=== PATIENT | female | born 1935 | race Caucasian/White ===

== ENCOUNTER 2017-08-19 16:41 | Inpatient (IN) ==
--- NOTE | 2017-08-19 16:58 | Emergency Department Note ---
Disposition Clinical Impression: Hypoxia Left lower lobe pneumonia Qualifiers: Pneumonia type: due to unspecified organism Qualified Code(s): J18.1 - Lobar pneumonia, unspecified organism Disposition: Admitted As Inpatient Referrals: Jihan Levin MD [Primary Care Provider] - Time of Disposition: 18:22 General Adult HPI - General Stated complaint: sob, chest congestion, dizziness, earache Time Seen by Provider: 08/19/17 16:56 Source: patient, other Mode of arrival: ambulatory Limitations: no limitations Nursing Notes Reviewed: Yes Vital Signs Reviewed: Yes - History of Present Illness HPI Narrative: I received a call from physician medical assistant float at the urgent care who indicated this patient had a five-day history of shortness of breath, lightheadedness, cough productive of purulent sputum, he had taken a chest x-ray which showed a left lower lobar infiltrate but was concerned because her pulse was irregularly irregular, she had been short of breath and dizzy and lightheaded and he was concerned that she may need to be admitted for her pneumonia. She had refused EKG there and has no history of atrial fib so he wanted her seen here in the emergency department Social history lives alone. Has not been out of the house in 6 days. Difficulty moving between her room and her bathroom because of dyspnea on exertion. Also reports edema about baseline for her. Denies past medical history of nebulizer treatments, COPD, emphysema, CHF. Onset (ago): day(s) (6) Pain Scale: 0 Associated symptoms: Reports: cough, diaphoresis, fever/chills, loss of appetite , malaise, shortness of breath. Denies: nausea/vomiting, syncope Treatments Prior to Arrival: none - Related Data Home Medications Medication Instructions Recorded Confirmed Atorvastatin Calcium [Lipitor] 20 mg PO DAILY 07/24/15 08/19/17 Carvedilol 12.5 mg PO BID 07/24/15 08/19/17 HydrALAZINE 100 mg PO BID 07/24/15 08/19/17 Lisinopril [Zestril] 20 mg PO DAILY 07/24/15 08/19/17 Omeprazole [PriLOSEC] 20 mg PO DAILY 07/24/15 08/19/17 Acetaminophen [Tylenol] 500 mg PO Q6HR PRN 08/19/17 08/19/17 Aspirin 325 mg PO DAILY 08/19/17 08/19/17 Cholecalciferol (Vitamin D3) 2,000 units PO DAILY 08/19/17 08/19/17 [Vitamin D3] Allergies Allergy/AdvReac Type Severity Reaction Status Date / Time No Known Allergies Allergy Verified 07/24/15 12:21 All systems ED: reviewed and negative except as stated. Review of Systems: As Per HPI Cardiovascular: Reports: dyspnea on exertion. Denies: chest pain, palpitations Respiratory: Reports: cough, dyspnea Past Medical History - Past Medical History Medical history: Reports: no medical history Psychiatric history: Reports: no psych history - Social History Smoking Status: Never smoker Smokeless Tobacco Status: No Alcohol use: Reports: none Drug use: Reports: none Physical Exam Constitutional: Patient is oriented to person, place, and time. Skin color is pink. Appears well hydrated, body habitus elderly and frail . Non toxic appearing. Head: Normocephalic and atraumatic. External ear exam normal Nose: Nose normal. Mouth/Throat: Uvula is midline, oropharynx is clear and moist and mucous membranes are normal. Eyes: Conjunctivae nl, extraocular motions and lids are normal. Pupils are equal , round, and reactive to light. Neck: Normal range of motion and phonation normal. Neck supple. Cardiovascular: Normal rate, irregular]rhythm, normal heart sounds. Pulmonary/Chest: No Respiratory distress. Respiratory Effort normal and breath sounds diminished. Pleural rub right lateral lung field. No wheezing Abdominal: Soft. Normal appearance and bowel sounds are normal. no tenderness, no masses, no guarding, no rebound Musculoskeletal: Good distal pulses. Soft compartments. Brisk cap refill. Extremities: Normal range of motion.Intact peripheral pulses. 2+ Edema. Extremity skin color darkened as if from chronic venous insufficiency no calf tenderness or palpable cords. Neurological: Patient is alert and oriented without evidence of obvious focal motor deficits Skin: Skin is warm, dry and intact. color is normal, cap refill is quick Psychiatric: Patient has normal mood and affect. She does seem to have difficulty recalling certain things. Refers to her daughter to provide history. Slow to respond. Very slight confusion Patient speech is normal and behavior is normal. Thought content normal. Course - Reevaluation(s) Reevaluation #1: Should be noted that the patient had a brief trip to the bedside commode and became extremely dyspneic and pulse ox dropped to 88% Time: 17:48 Reevaluation #2: I discussed the case with Dr. Calle who agreed to accept patient here at [facility]. She is agreeable to plan. We discussed her physical examination, history, plan, we discussed specifically antibiotic choice and doses as well as DVT prophylaxis and treatment with Lasix Time: 18:21 Vital Signs Temperature 97.0 F L 08/19/17 16:54 Pulse Rate 56 08/19/17 16:54 Respiratory Rate 16 08/19/17 16:54 Blood Pressure 229/106 08/19/17 16:54 O2 Sat by Pulse Oximetry 96 08/19/17 16:54 Temperature 97.0 F L 08/19/17 16:54 Pulse Rate 56 08/19/17 16:54 Respiratory Rate 16 08/19/17 16:54 Blood Pressure 229/106 08/19/17 16:54 O2 Sat by Pulse Oximetry 96 08/19/17 16:54 Oxygen Delivery Oxygen Delivery Room Air Medical Decision Making - MDM Narrative Medical decision making narrative: Patient has no pneumonia from previous chest x-ray. Medical decision making includes plan for disposition outpatient versus admission. Transfer versus admitting her here. Evaluating for possible sepsis. In addition she has the irregular heart rate and no history apparently of A. fib. We will review previous medical records. - Medical Records Medical records reviewed: Yes I reviewed the patient's medical records. - Lab Data Lab results reviewed: Yes I reviewed the patient's lab results. Result diagrams: 08/19/17 17:04 08/19/17 17:04 Lab Results 08/19/17 08/19/17 08/19/17 Range/Units 17:04 17:04 17:04 WBC 7.3 (4.3-11.1) K/mcL RBC 3.79 L (3.82-4.97) M/mcL Hgb 11.4 L (11.5-15.4) g/dL Hct 34.5 L (35.3-44.9) % MCV 91.0 (83.0-100.0) fL MCH 30.1 (28.0-33.3) pg MCHC 33.0 (31.6-35.5) g/dL RDW 12.1 (11.5-14.5) % Plt Count 189 (140-400) K/mcL MPV 9.0 L (9.4-12.4) fL Immature Gran % 0.8 (0-4) % Seg Neutrophils % 74.4 % Lymphocytes % 11.8 % Monocytes % 8.8 % Eosinophils % 3.4 % Basophils % 0.8 % Neutrophils # 5.4 (1.6-8.9) K/mcL Lymphocytes # 0.9 (0.6-4.6) K/mcL Monocytes # 0.6 (0.0-1.3) K/mcL Eosinophils # 0.3 (0.0-0.6) K/mcL Basophils # 0.1 (0.0-0.2) K/mcL VBG pH (7.32-7.42) pH Units VBG pCO2 (41-51) mmHg VBG pO2 (25-50) mmHg VBG HCO3 (21-27) mEq/L Sodium 137 (136-145) mEq/L Potassium 3.7 (3.5-4.5) mEq/L Chloride 107 (98-109) mEq/L Carbon Dioxide 22 (19-29) mEq/L BUN 26 H (7-20) mg/dL Creatinine 1.11 (0.57-1.11) mg/dL Est GFR ( Amer) 57 L (> 60) Est GFR (Non-Af Amer) 47 L (> 60) BUN/Creatinine Ratio 23 (6-26) Glucose 92 (70-99) mg/dL Calculated Osmolality 288 (280-300) Lactic Acid (0.5-2.2) mmol/L Calcium 11.2 H (8.6-10.8) mg/dL Total Bilirubin 1.2 (0.2-1.2) mg/dL AST 16 (5-34) Units/L ALT 10 (0-55) Units/L Alkaline Phosphatase 74 (38-126) Units/L Troponin I 0.02 (0-0.03) ng/mL B-Natriuretic Peptide (0-100) pg/mL Serum Total Protein 6.3 (6.0-8.3) g/dL Albumin 3.2 L (3.5-5.0) g/dL Globulin 3.1 (2.4-3.5) g/dL Albumin/Globulin Ratio 1.0 L (1.1-2.2) Urine Color (Yellow) Urine Clarity (Clear) Urine pH (5.0-8.0) pH Units Ur Specific [place] (1.010-1.025) Urine Protein (Neg-Trace) mg/dL Urine Glucose (UA) (Normal) mg/dL Urine Ketones (Negative) mg/dL Urine Blood (Negative) Urine Nitrite (Negative) Urine Bilirubin (Negative) Urine Urobilinogen (Normal) mg/dL Ur Leukocyte Esterase (Negative) 08/19/17 08/19/17 08/19/17 Range/Units 17:04 17:23 17:38 WBC (4.3-11.1) K/mcL RBC (3.82-4.97) M/mcL Hgb (11.5-15.4) g/dL Hct (35.3-44.9) % MCV (83.0-100.0) fL MCH (28.0-33.3) pg MCHC (31.6-35.5) g/dL RDW (11.5-14.5) % Plt Count (140-400) K/mcL MPV (9.4-12.4) fL Immature Gran % (0-4) % Seg Neutrophils % % Lymphocytes % % Monocytes % % Eosinophils % % Basophils % % Neutrophils # (1.6-8.9) K/mcL Lymphocytes # (0.6-4.6) K/mcL Monocytes # (0.0-1.3) K/mcL Eosinophils # (0.0-0.6) K/mcL Basophils # (0.0-0.2) K/mcL VBG pH (7.32-7.42) pH Units VBG pCO2 (41-51) mmHg VBG pO2 (25-50) mmHg VBG HCO3 (21-27) mEq/L Sodium (136-145) mEq/L Potassium (3.5-4.5) mEq/L Chloride (98-109) mEq/L Carbon Dioxide (19-29) mEq/L BUN (7-20) mg/dL Creatinine (0.57-1.11) mg/dL Est GFR ( Amer) (> 60) Est GFR (Non-Af Amer) (> 60) BUN/Creatinine Ratio (6-26) Glucose (70-99) mg/dL Calculated Osmolality (280-300) Lactic Acid 1.1 (0.5-2.2) mmol/L Calcium (8.6-10.8) mg/dL Total Bilirubin (0.2-1.2) mg/dL AST (5-34) Units/L ALT (0-55) Units/L Alkaline Phosphatase (38-126) Units/L Troponin I (0-0.03) ng/mL B-Natriuretic Peptide 1250 H (0-100) pg/mL Serum Total Protein (6.0-8.3) g/dL Albumin (3.5-5.0) g/dL Globulin (2.4-3.5) g/dL Albumin/Globulin Ratio (1.1-2.2) Urine Color Yellow (Yellow) Urine Clarity Clear (Clear) Urine pH 5.5 (5.0-8.0) pH Units Ur Specific [place] 1.010 (1.010-1.025) Urine Protein Negative (Neg-Trace) mg/dL Urine Glucose (UA) Normal (Normal) mg/dL Urine Ketones Negative (Negative) mg/dL Urine Blood Negative (Negative) Urine Nitrite Negative (Negative) Urine Bilirubin Negative (Negative) Urine Urobilinogen Normal (Normal) mg/dL Ur Leukocyte Esterase Negative (Negative) 08/19/17 Range/Units 17:46 WBC (4.3-11.1) K/mcL RBC (3.82-4.97) M/mcL Hgb (11.5-15.4) g/dL Hct (35.3-44.9) % MCV (83.0-100.0) fL MCH (28.0-33.3) pg MCHC (31.6-35.5) g/dL RDW (11.5-14.5) % Plt Count (140-400) K/mcL MPV (9.4-12.4) fL Immature Gran % (0-4) % Seg Neutrophils % % Lymphocytes % % Monocytes % % Eosinophils % % Basophils % % Neutrophils # (1.6-8.9) K/mcL Lymphocytes # (0.6-4.6) K/mcL Monocytes # (0.0-1.3) K/mcL Eosinophils # (0.0-0.6) K/mcL Basophils # (0.0-0.2) K/mcL VBG pH 7.37 (7.32-7.42) pH Units VBG pCO2 40 L (41-51) mmHg VBG pO2 44 (25-50) mmHg VBG HCO3 23 (21-27) mEq/L Sodium (136-145) mEq/L Potassium (3.5-4.5) mEq/L Chloride (98-109) mEq/L Carbon Dioxide (19-29) mEq/L BUN (7-20) mg/dL Creatinine (0.57-1.11) mg/dL Est GFR ( Amer) (> 60) Est GFR (Non-Af Amer) (> 60) BUN/Creatinine Ratio (6-26) Glucose (70-99) mg/dL Calculated Osmolality (280-300) Lactic Acid (0.5-2.2) mmol/L Calcium (8.6-10.8) mg/dL Total Bilirubin (0.2-1.2) mg/dL AST (5-34) Units/L ALT (0-55) Units/L Alkaline Phosphatase (38-126) Units/L Troponin I (0-0.03) ng/mL B-Natriuretic Peptide (0-100) pg/mL Serum Total Protein (6.0-8.3) g/dL Albumin (3.5-5.0) g/dL Globulin (2.4-3.5) g/dL Albumin/Globulin Ratio (1.1-2.2) Urine Color (Yellow) Urine Clarity (Clear) Urine pH (5.0-8.0) pH Units Ur Specific [place] (1.010-1.025) Urine Protein (Neg-Trace) mg/dL Urine Glucose (UA) (Normal) mg/dL Urine Ketones (Negative) mg/dL Urine Blood (Negative) Urine Nitrite (Negative) Urine Bilirubin (Negative) Urine Urobilinogen (Normal) mg/dL Ur Leukocyte Esterase (Negative) - Radiology Data Radiology results reviewed: Yes I reviewed the patient's radiology results. I have reviewed the radiology interpretation of x-ray earlier today which shows the left lower lobar infiltrate - EKG Data EKG #1 EKG attestation: Yes I reviewed and interpreted this EKG. EKG results narrative: EKG shows sinus rhythm with first-degree AV block and left axis deviation old inferior wall [place] and a few supraventricular premature complexes. No evidence of acute ST-T wave changes
[2017-08-19] MEDS ORDERED: Ipratropium/Albuterol Neb 3 ML IH ONE (17:14)
[2017-08-19 17:27] LABS: Basophils # 0.1 K/mcL (0.0-0.2); Basophils % 0.8 %; Eosinophils # 0.3 K/mcL (0.0-0.6); Eosinophils % 3.4 %; Hematocrit 34.5 % (35.3-44.9); Hemoglobin 11.4 g/dL (11.5-15.4); Immature Granulocytes % 0.8 % (0-4); Lymphocytes # 0.9 K/mcL (0.6-4.6); Lymphocytes % 11.8 %; Mean Corpuscular Hemoglobin 30.1 pg (28.0-33.3); Monocytes # 0.6 K/mcL (0.0-1.3); Monocytes % 8.8 %; Neutrophils # 5.4 K/mcL (1.6-8.9); Platelet Count 189 K/mcL (140-400); Red Blood Count 3.79 M/mcL (3.82-4.97); Red Cell Distribution Width 12.1 % (11.5-14.5); Segmented Neutrophils % 74.4 %
[2017-08-19 17:41] LABS: Albumin 3.2 g/dL (3.5-5.0); Bilirubin,Total 1.2 mg/dL (0.2-1.2); Calcium 11.2 mg/dL (8.6-10.8); Globulin 3.1 g/dL (2.4-3.5); Potassium 3.7 mEq/L (3.5-4.5); Total Protein 6.3 g/dL (6.0-8.3)
[2017-08-19 17:50] LABS: Bilirubin,Urine Negative (Negative); Blood,Urine Negative (Negative); Clarity,Urine Clear (Clear); Color,Urine Yellow (Yellow); Glucose,Urine (UA) Normal (Normal); Ketones,Urine Negative (Negative); Leukocyte Esterase,Urine Negative (Negative); Nitrite,Urine Negative (Negative); PH,Urine 5.5 pH Units (5.0-8.0); Protein,Urine Negative (Neg-Trace); Urobilinogen,Urine Normal (Normal)
[2017-08-19 17:51] LABS: VBG HCO3 23 mEq/L (21-27); VBG PCO2 40 mmHg (41-51); VBG PH 7.37 pH Units (7.32-7.42); VBG PO2 44 mmHg (25-50)
[2017-08-19] MEDS ORDERED: Levofloxacin 500 MG/100 ML 500 MG/100 ML BAG IVPB ONE (18:12)
[2017-08-19] MEDS ORDERED: Furosemide 40 MG/4 ML VIAL IVP ONE (18:15)
[2017-08-19] MEDS ORDERED: Naloxone 0.4 MG/ML INJ IVP PRN (19:32)
[2017-08-19] MEDS: hydrALAZINE 25 MG TABLET PO SCH (20:41)
[2017-08-19] MEDS ORDERED: hydrALAZINE 25 MG TABLET PO SCH (21:00)
[2017-08-19] MEDS: Benzonatate 100 MG CAPSULE PO PRN (22:16)
[2017-08-19] MEDS: Acetaminophen 325 MG TABLET PO PRN (22:17)
[2017-08-20 05:43] LABS: Basophils % 0.5 %; Eosinophils # 0.1 K/mcL (0.0-0.6); Eosinophils % 1.3 %; Hematocrit 31.8 % (35.3-44.9); Hemoglobin 10.7 g/dL (11.5-15.4); Immature Granulocytes % 0.7 % (0-4); Lymphocytes # 0.8 K/mcL (0.6-4.6); Mean Corpuscular HGB Conc 33.6 g/dL (31.6-35.5); Mean Corpuscular Hemoglobin 30.1 pg (28.0-33.3); Mean Corpuscular Volume 89.6 fL (83.0-100.0); Monocytes # 0.7 K/mcL (0.0-1.3); Monocytes % 7.5 %; Neutrophils # 7.1 K/mcL (1.6-8.9); Platelet Count 197 K/mcL (140-400); Red Blood Count 3.55 M/mcL (3.82-4.97)
[2017-08-20 06:00] LABS: Albumin 2.7 g/dL (3.5-5.0); Bilirubin,Total 1.1 mg/dL (0.2-1.2); Globulin 2.8 g/dL (2.4-3.5); Potassium 3.1 mEq/L (3.5-4.5); Total Protein 5.5 g/dL (6.0-8.3)
[2017-08-20] MEDS: *HR* Enoxaparin 30 MG/0.3 ML SYRINGE SQ SCH (06:17)
[2017-08-20] MEDS: Levofloxacin 750 MG/150 ML 750 MG/150 ML BAG IVPB SCH (08:37)
[2017-08-20] MEDS: Lisinopril 20 MG TABLET PO SCH (08:37)
[2017-08-20] MEDS: Aspirin 325 MG TABLET PO SCH (08:37)
[2017-08-20] MEDS: hydrALAZINE 25 MG TABLET PO SCH ×2 (08:37→21:08)
[2017-08-20] MEDS ORDERED: Aspirin 325 MG TABLET PO SCH (09:00)
[2017-08-20] MEDS ORDERED: Lisinopril 20 MG TABLET PO SCH (09:00)
--- NOTE | 2017-08-20 14:25 | Internal Med History&Physical ---
Date of Encounter: 08/20/17 Time of Encounter: 14:23 Assessment and Plan (1) Pneumonia Current visit: No Status: Acute She was in urgent care with a do chest x-ray and noted that she had a possible airspace disease and left lower lobe Qualifiers: Pneumonia type: due to unspecified organism Laterality: left Lung location: lower lobe of lung Qualified Code(s): J18.1 - Lobar pneumonia, unspecified organism (2) Shortness of breath Current visit: No Status: Acute Patient was a very short of breath when she came in but she is better this a.m. (3) Left lower lobe pneumonia Current visit: Yes Status: Acute Shows left lower lobe pneumonia and being treated with IV antibiotics and general support Qualifiers: Pneumonia type: due to unspecified organism Qualified Code(s): J18.1 - Lobar pneumonia, unspecified organism Internal Medicine - H&P: HPI Chief complaint: Patient presented to the urgent care or to 3 days shortness of breath cough Admitted From: Emergency Dept Plans for Post Hospital Care: Home History of present illness: Ms. Medina is a 81 year old female Past Med Surg Social Fam HX - Past Medical History Medical history: coronary artery disease, GERD, hypertension Psychiatric history: no psych history - Past Surgical History Surgical History: appendectomy - Social History Smoking Status: Never smoker Smokeless Tobacco Status: No Alcohol use: none Drug use: none Internal Medicine - H&P: Meds Atorvastatin Calcium [Lipitor] 20 mg PO DAILY 07/24/15 [History] Carvedilol 12.5 mg PO BID 07/24/15 [History] HydrALAZINE 100 mg PO BID 07/24/15 [History] Lisinopril [Zestril] 20 mg PO DAILY 07/24/15 [History] Omeprazole [PriLOSEC] 20 mg PO DAILY 07/24/15 [History] Acetaminophen [Tylenol] 500 mg PO Q6HR PRN 08/19/17 [History] Aspirin 325 mg PO DAILY 08/19/17 [History] Cholecalciferol (Vitamin D3) [Vitamin D3] 2,000 units PO DAILY 08/19/17 [History ] Gabapentin [Neurontin] 100 mg PO TID 08/19/17 [History] 3 Allergy/AdvReac Type Severity Reaction Status Date / Time No Known Allergies Allergy Verified 07/24/15 12:21 All Systems PM: A 10-system review of systems was performed and is negative for pertinent findings except as documented above in the HPI. - Constitutional Constitutional: fatigue, no anorexia, no chills, no excessive sweating, no fever (s), no falls, no lethargy, no malaise, no night sweats, no weakness, no weight gain, no weight loss - EENT Eyes: no blurry vision, no change in vision, no decreased night vision, no diplopia, no discharge, no dry eye, no floaters, no irritation, no itchy eyes, no loss of peripheral vision, no loss of vision, no pain, no photophobia, no seeing flashes, no spots in vision, no tunnel vision, no other visual disturbances Ears: no decreased hearing, no ear discharge, no ear pain, no tinnitus Nose, mouth and throat: no as per HPI, no bleeding gums, no change in voice, no dental pain, no dry mouth, no dysphagia, no epistaxis, no facial pain, no hoarseness, no lip swelling, no mouth lesions, no mouth pain, no nasal congestion, no nasal discharge, no nasal obstruction, no neck mass, no neck pain , no nose pain, no odynophagia, no post-nasal drip, no sinus pain, no sinus pressure, no sore throat, no throat swelling, no tongue swelling - Breasts Breasts: no change in shape, no mass, no pain, no nipple discharge, no skin changes, no swelling - Cardiovascular Cardiovascular ROS IM: dyspnea, no chest pain, no claudication, no diaphoresis, no dyspnea on exertion, no edema, no irregular heart rhythm, no lightheadedness , no orthopnea, no palpitations, no paroxysmal nocturnal dyspnea, no syncope - Respiratory Respiratory: cough, dyspnea, excessive phlegm production, change in phlegm color , no hemoptysis, no dyspnea on exertion, no wheezing, no snoring, no stridor, no pain on inspiration, no chest congestion, no pain with cough - Gastrointestinal Gastrointestinal: no abdominal pain, no belching, no bloating, no change in bowel habits, no change in stool character, no coffee ground emesis, no constipation, no cramping, no diarrhea, no dyspepsia, no dysphagia, no early satiety, no excessive flatus, no fecal incontinence, no heartburn, no hematemesis, no hematochezia, no loose stools, no melena, no nausea, no odynophagia, no tenesmus, no vomiting - Genitourinary Genitourinary: no abnormal menses, no abnormal vaginal bleeding, no amenorrhea, no breast change in shape, no breast mass, no breast pain, no breast skin changes, no breast swelling, no change in libido, no change in urinary stream, no difficulty conceiving, no difficulty urinating, no difficulty voiding, no dysmenorrhea, no dyspareunia, no dysuria, no flank pain, no genital lesions, no genital pruritis, no hematuria, no hot flashes, no light periods, no menorrhagia , no metrorrhagia, no nipple discharge, no nocturia, no pelvic pain, no post void dribbling, no prolapse symptoms, no sexual dysfunction, no urinary frequency, no urinary hesitancy, no urinary incontinence, no urinary urgency, no vaginal discharge, no vaginal dryness, no vaginal odor, no vaginal pruritis Additional comments: n/a - Musculoskeletal Musculoskeletal ROS IM: arthralgias, atrophy, no back pain, no deformity, no joint swelling, no limited range of motion, no muscle cramps, no muscle weakness , no myalgias, no neck pain, no numbness, no stiffness, no tingling - Integumentary Integumentary IM: no erythema, no new lesions, no non-healing lesions, no pruritus, no rash, no skin ulcer, no sores, no unusual bruising, no jaundice - Neurological Neurological ROS: no abnormal gait, no abnormal hearing, no abnormal movements, no abnormal speech, no behavioral changes, no burning sensations, no confusion, no convulsions, no disequilibrium, no dizziness, no focal weakness, no frequent falls, no headache(s), no lack of coordination, no loss of vision, no memory loss, no numbness, no paresthesias, no radicular pain, no restless legs, no tingling, no tremor(s), no vertigo, no weakness, no other visual disturbances - Psychiatric Psychiatric: no abnormal sleep pattern, no anhedonia, no anxiety, no auditory hallucinations, no confusion, no hallucinations, no homicidal ideation, no mood swings, no panic attacks, no paranoia, no suicidal ideation, no visual hallucinations - Endocrine Endocrine IM: no cold intolerance, no fatigue, no flushing, no heat intolerance , no polydipsia, no polyphagia, no polyuria - Hematologic/Lymphatic Hematologic/Lymphatic: no easy bleeding, no easy bruising, no lymphadenopathy - Allergic/Immunologic Allergic/Immunologic: no tongue swelling, no throat swelling, no itchy eyes, no seasonal rhinorrhea, no uticaria, no wheezing, no GI upset with certain foods, no lip swelling - Constitutional Vitals: Temp Pulse Resp BP Pulse Ox 98.3 F 101 20 184/98 95 08/20/17 07:59 08/20/17 07:59 08/20/17 07:59 08/20/17 07:59 08/20/17 07:59 General appearance: Present: A&O X 3, pleasant, answers questions appropriately - Head Head exam: Present: atraumatic, normal inspection, normocephalic - Neck Neck exam general surgery: Present: supple, trachea midline. Absent: lymphadenopathy - Respiratory Respiratory exam: Present: CTAB. Absent: accessory muscle use, rales, rhonchi, wheezes - Cardiovascular Cardiovascular exam: Present: RRR, +S1, +S2. Absent: diastolic murmur, gallop, rubs, systolic murmur - GI/Abdominal GI/Abdominal exam: Present: normal bowel sounds, soft, no peritoneal signs. Absent: distended, tenderness Internal Med - H&P Results - Labs CBC & Chem 7: 08/20/17 05:00 08/20/17 05:00 Labs: Short CBC 08/20/17 Range/Units 05:00 WBC 8.8 (4.3-11.1) K/mcL Hgb 10.7 L (11.5-15.4) g/dL Hct 31.8 L (35.3-44.9) % Plt Count 197 (140-400) K/mcL Neutrophils # 7.1 (1.6-8.9) K/mcL BMP 08/20/17 05:00 Sodium 139 Potassium 3.1 L Chloride 106 Carbon Dioxide 25 BUN 26 H Creatinine 1.12 H Glucose 96 Calcium 11.0 H Cardiac Enzymes 08/20/17 Range/Units 05:00 Troponin I 1.99 H* (0-0.03) ng/mL Liver Function 08/20/17 Range/Units 05:00 Total Bilirubin 1.1 (0.2-1.2) mg/dL AST 20 (5-34) Units/L ALT 10 (0-55) Units/L Alkaline Phosphatase 65 (38-126) Units/L Albumin 2.7 L (3.5-5.0) g/dL Potassium was noted. Adjustment is going to be made. She had a little elevation in her troponin and this may be due to the pneumonia.
[2017-08-20] MEDS: Benzonatate 100 MG CAPSULE PO PRN (21:08)
[2017-08-21] MEDS: *HR* Enoxaparin 30 MG/0.3 ML SYRINGE SQ SCH (06:01)
[2017-08-21 06:04] LABS: Calcium 10.5 mg/dL (8.6-10.8); Potassium 3.8 mEq/L (3.5-4.5)
[2017-08-21] MEDS: Aspirin 325 MG TABLET PO SCH (08:25)
[2017-08-21] MEDS: Lisinopril 20 MG TABLET PO SCH (08:25)
[2017-08-21] MEDS: hydrALAZINE 25 MG TABLET PO SCH ×2 (08:26→23:29)
[2017-08-21] MEDS: Levofloxacin 750 MG/150 ML 750 MG/150 ML BAG IVPB SCH (10:31)
--- NOTE | 2017-08-21 15:40 | Internal Med Progress Note ---
Date of Encounter: 08/21/17 Time of Encounter: 15:37 - Assessment and plan (1) Pneumonia Current Visit: No Status: Acute Qualifiers: Pneumonia type: due to unspecified organism Laterality: left Lung location: lower lobe of lung Qualified Code(s): J18.1 - Lobar pneumonia, unspecified organism (2) Shortness of breath Current Visit: No Status: Acute (3) Left lower lobe pneumonia Current Visit: Yes Status: Acute Qualifiers: Pneumonia type: due to unspecified organism Qualified Code(s): J18.1 - Lobar pneumonia, unspecified organism - Subjective Interval history: Patient's doing better. I will continue to follow chest x-rays. And have therapy body design checker. - Constitutional Vitals: Temp Pulse Resp BP Pulse Ox 98.1 F 95 14 166/108 94 08/21/17 11:00 08/21/17 11:00 08/21/17 11:00 08/21/17 11:00 08/21/17 11:00 General appearance: Present: A&O X 3, pleasant, answers questions appropriately - Head Head exam: Present: atraumatic, normal inspection, normocephalic - Neck Neck exam general surgery: Present: supple, trachea midline. Absent: lymphadenopathy - Respiratory Respiratory exam: Present: CTAB. Absent: accessory muscle use, rales, rhonchi, wheezes - Cardiovascular Cardiovascular exam: Present: RRR, +S1, +S2. Absent: diastolic murmur, gallop, rubs, systolic murmur Internal Medicine: Result - Labs CBC & Chem 7: 08/20/17 05:00 08/21/17 05:00 Labs: BMP 08/21/17 05:00 Sodium 139 Potassium 3.8 Chloride 108 Carbon Dioxide 24 BUN 31 H Creatinine 1.34 H Glucose 97 Calcium 10.5 Cardiac Enzymes 08/20/17 08/21/17 Range/Units 05:00 05:00 Troponin I 1.99 H* 1.07 H* (0-0.03) ng/mL - Impressions Impressions Chest X-Ray 08/21/17 11:35 IMPRESSION: Improving left basilar atelectasis or pneumonia. D/ / Allan Bowers MD / Allan Bowers MD Interpreting Provider: Allan Bowers MD Consult Discharge Plan - Plan
[2017-08-21] MEDS ORDERED: hydrALAZINE 25 MG TABLET PO ONE ×2 (16:46→20:03)
[2017-08-21] MEDS ORDERED: Furosemide 20 MG TABLET PO ONE (20:55)
[2017-08-22] MEDS: *HR* Enoxaparin 30 MG/0.3 ML SYRINGE SQ SCH (06:37)
[2017-08-22] MEDS: Aspirin 325 MG TABLET PO SCH (08:39)
[2017-08-22] MEDS: Lisinopril 20 MG TABLET PO SCH (08:39)
[2017-08-22] MEDS: Levofloxacin 750 MG/150 ML 750 MG/150 ML BAG IVPB SCH (08:40)
[2017-08-22] MEDS: hydrALAZINE 25 MG TABLET PO SCH ×3 (08:40→23:57)
--- NOTE | 2017-08-22 14:27 | Internal Med Progress Note ---
Date of Encounter: 08/22/17 Time of Encounter: 14:25 - Assessment and plan (1) Pneumonia Current Visit: Yes Status: Acute Assessment and plan: Unfortunately today's x-ray still shows patchy infiltrate. Qualifiers: Pneumonia type: due to unspecified organism Laterality: left Lung location: lower lobe of lung Qualified Code(s): J18.1 - Lobar pneumonia, unspecified organism (2) Shortness of breath Current Visit: No Status: Acute (3) Left lower lobe pneumonia Current Visit: Yes Status: Acute Assessment and plan: Presenting complaint Qualifiers: Pneumonia type: due to unspecified organism Qualified Code(s): J18.1 - Lobar pneumonia, unspecified organism - Time Spent With Patient less than 15 minutes - Subjective Interval history: Patient's doing better. I will continue to follow chest x-rays. And have therapy construction checker. - Constitutional Vitals: Temp Pulse Resp BP Pulse Ox 98.1 F 115 18 180/110 94 08/22/17 07:40 08/22/17 10:01 08/22/17 10:01 08/22/17 10:01 08/22/17 10:01 General appearance: Present: A&O X 3, pleasant, answers questions appropriately - Head Head exam: Present: atraumatic, normal inspection, normocephalic - Neck Neck exam general surgery: Present: supple, trachea midline. Absent: lymphadenopathy - Respiratory Respiratory exam: Present: CTAB. Absent: accessory muscle use, rales, rhonchi, wheezes - Cardiovascular Cardiovascular exam: Present: RRR, +S1, +S2. Absent: diastolic murmur, gallop, rubs, systolic murmur Internal Medicine: Result - Labs CBC & Chem 7: 08/20/17 05:00 08/21/17 05:00 - Impressions Impressions Chest X-Ray 08/22/17 06:11 IMPRESSION: Stable chest. D/ /22/2017 08:11:04 Brcue Aquino MD / los Interpreting Provider: Bruce Aquino MD Consult Discharge Plan - Plan Referrals: Jihan Levin MD [Primary Care Provider] -
--- NOTE | 2017-08-22 15:51 | Electrocardiograph Report ---
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
[2017-08-23] MEDS: *HR* Enoxaparin 30 MG/0.3 ML SYRINGE SQ SCH (06:16)
[2017-08-23] MEDS: Levofloxacin 750 MG/150 ML 750 MG/150 ML BAG IVPB SCH (08:09)
[2017-08-23] MEDS: Aspirin 325 MG TABLET PO SCH (08:09)
[2017-08-23] MEDS: hydrALAZINE 25 MG TABLET PO SCH ×2 (08:09→16:04)
[2017-08-23] MEDS: Lisinopril 20 MG TABLET PO SCH (08:10)
[2017-08-23] MEDS: Acetaminophen 325 MG TABLET PO PRN (10:09)
--- NOTE | 2017-08-23 14:58 | Internal Med Progress Note ---
Date of Encounter: 08/23/17 Time of Encounter: 15:27 - Assessment and plan (1) Congestive heart disease Current Visit: Yes Status: Acute Assessment and plan: - elevated BNP noted, and pt has fluid overlaod with chest x-ray reviewed - Cardiomegally was also noted - plural effusion with suspecting pneumonia given acute presentations - Chronically on Lasix 20mg and was given ?40mg on admission - Given 20mg today given LATISHA present now - Will repeat BMP tomorrow Qualifiers: Congestive heart failure type: unspecified congestive heart failure type Congestive heart failure chronicity: acute on chronic Qualified Code(s): I50.9 - Heart failure, unspecified (2) Pneumonia Current Visit: Yes Status: Acute Assessment and plan: - Left lobar pneumonia suspicion, community acquired at this time - Agree with levoquin, today day Qualifiers: Pneumonia type: due to unspecified organism Laterality: left Lung location: lower lobe of lung Qualified Code(s): J18.1 - Lobar pneumonia, unspecified organism (3) Hypertension Current Visit: Yes Status: Acute Assessment and plan: - uncontoled, essential - Currently on lisinopril 20 which will be increased to 30mg - Hydralazine is at 400mg per day, divided QID - Would decrese hydralazine as the pt is tachycardic in the setting of elevated trop Qualifiers: Hypertension type: essential hypertension Qualified Code(s): I10 - Essential (primary) hypertension (4) Tachycardia Current Visit: Yes Status: Acute Assessment and plan: - most likely related to hydralazine at this time - will start to decrease dosage to 75mg QID then tomorrow to 50mg QID - Increasing lisinopril (5) Acute kidney failure Current Visit: Yes Status: Acute Assessment and plan: - Secondary to problem #1 with hypoperfusion status - Starting lasix and will monitor BMP tomorrow - will decrease hydralazine Qualifiers: Acute renal failure type: unspecified Qualified Code(s): N17.9 - Acute kidney failure, unspecified (6) Anemia Current Visit: Yes Status: Acute Assessment and plan: - stable, possible anemia of chronic disease Qualifiers: Anemia type: unspecified type Qualified Code(s): D64.9 - Anemia, unspecified - Time Spent With Patient 25 - 35 minutes - Subjective Interval history: - no complaints, working with physical therapy - reporting improved breathing - overall feels better - Constitutional Vitals: Temp Pulse Resp BP Pulse Ox 98 F 129 15 158/98 95 08/23/17 07:00 08/23/17 07:00 08/23/17 07:00 08/23/17 07:00 08/23/17 07:00 General appearance: Present: A&O X 3, pleasant, answers questions appropriately - Head Head exam: Present: atraumatic, normal inspection, normocephalic - Respiratory Respiratory exam: Present: CTAB. Absent: accessory muscle use, rhonchi, wheezes , tachypnea Additional comments: no changes noted on the left lower quadrant - Cardiovascular Cardiovascular exam: Present: RRR, +S1, +S2, tachycardia. Absent: JVD, systolic murmur - GI/Abdominal GI/Abdominal exam: Present: normal bowel sounds, soft - Neurological Exam Neurological exam: Present: oriented X3, strengths equal and symetr throughout - Psychiatric Psychiatric exam: Absent: agitated, anxious, depressed - Skin Skin exam: Present: intact. Absent: rash Internal Medicine: Result - Labs CBC & Chem 7: 08/20/17 05:00 08/21/17 05:00 - Impressions Impressions Chest X-Ray 08/22/17 06:11 IMPRESSION: Stable chest. D/ /22/2017 08:11:04 Bruce Aquino MD / los Interpreting Provider: Bruce Aquino MD Consult Discharge Plan - Plan Referrals: Jihan Levin MD [Primary Care Provider] -
[2017-08-23] MEDS: Furosemide 20 MG TABLET PO SCH (16:06)
[2017-08-23] MEDS: Benzonatate 100 MG CAPSULE PO PRN (21:57)
[2017-08-24] MEDS: hydrALAZINE 25 MG TABLET PO SCH ×3 (01:21→18:44)
[2017-08-24] MEDS: *HR* Enoxaparin 30 MG/0.3 ML SYRINGE SQ SCH (06:13)
[2017-08-24] MEDS: Aspirin 325 MG TABLET PO SCH (07:56)
[2017-08-24] MEDS: Furosemide 20 MG TABLET PO SCH (07:57)
[2017-08-24] MEDS ORDERED: Furosemide 20 MG TABLET PO ONE (10:59)
[2017-08-24] MEDS: Acetaminophen 325 MG TABLET PO PRN ×2 (12:53→21:27)
--- NOTE | 2017-08-24 15:25 | Internal Med Progress Note ---
Date of Encounter: 08/24/17 Time of Encounter: 15:20 - Assessment and plan (1) Congestive heart disease Current Visit: Yes Status: Acute Assessment and plan: - Weight elevated today - elevated BNP noted, and pt has fluid overlaod with chest x-ray reviewed - Cardiomegally was also noted - plural effusion with suspecting pneumonia given acute presentations - Chronically on Lasix 40mg PRN - Restarting lasix 40mg qdaily Qualifiers: Congestive heart failure type: unspecified congestive heart failure type Congestive heart failure chronicity: acute on chronic Qualified Code(s): I50.9 - Heart failure, unspecified (2) Pneumonia Current Visit: Yes Status: Acute Assessment and plan: - Left lobar pneumonia suspicion, community acquired at this time - Agree with levoquin Qualifiers: Pneumonia type: due to unspecified organism Laterality: left Lung location: lower lobe of lung Qualified Code(s): J18.1 - Lobar pneumonia, unspecified organism (3) Hypertension Current Visit: Yes Status: Acute Assessment and plan: - uncontoled, essential - increased lisinopril to 40mg today - home Hydralazine is at 300mg per day, divided TID - suspected tachycardia secondary to hydralazine, will continue at 75mg TID for couple of day - ultimatly would like to decrease to 50mg TID - Started Cardizem today at 120mg Qualifiers: Hypertension type: essential hypertension Qualified Code(s): I10 - Essential (primary) hypertension (4) Tachycardia Current Visit: Yes Status: Acute Assessment and plan: - most likely related to hydralazine at this time - will start to decrease dosage to 75mg TID - Increasing lisinopril 40mg - ECG showed Atrial Flutter, and pt started on cardizem 120mg CD - Consulted Cardiology (5) Acute kidney failure Current Visit: Yes Status: Acute Assessment and plan: - Secondary to problem #1 with hypoperfusion status - Starting lasix and will monitor BMP tomorrow Qualifiers: Acute renal failure type: unspecified Qualified Code(s): N17.9 - Acute kidney failure, unspecified (6) Anemia Current Visit: Yes Status: Acute Assessment and plan: - stable, possible anemia of chronic disease Qualifiers: Anemia type: unspecified type Qualified Code(s): D64.9 - Anemia, unspecified (7) Atrial flutter Current Visit: Yes Status: Acute Assessment and plan: - Per ECG performed today at12/3 - cardizem started 08/24 - cardiology was consulted for further management of tachycardia - pt placed on tele to monitor HR Qualifiers: Atrial flutter type: unspecified Qualified Code(s): I48.92 - Unspecified atrial flutter - Time Spent With Patient 25 - 35 minutes - Subjective Interval history: - no complaints, working with physical therapy - reporting improved breathing - overall feels better - Constitutional Vitals: Temp Pulse Resp BP Pulse Ox 98.1 F 119 15 153/98 97 08/24/17 07:39 08/24/17 07:39 08/24/17 07:39 08/24/17 07:39 08/24/17 07:39 General appearance: Present: A&O X 3, pleasant, answers questions appropriately - Head Head exam: Present: atraumatic, normocephalic - Eye Eye exam: Present: PERRL, conjuntiva pink, sclera anicteric Pupils: Present: PERRL - Neck Neck exam general surgery: Present: supple, trachea midline. Absent: lymphadenopathy - Respiratory Respiratory exam: Present: CTAB. Absent: accessory muscle use, rales, rhonchi, wheezes - Cardiovascular Cardiovascular exam: Present: +S1, +S2, tachycardia. Absent: diastolic murmur, gallop, rubs, systolic murmur - GI/Abdominal GI/Abdominal exam: Present: normal bowel sounds, soft, no peritoneal signs. Absent: distended, tenderness - Extremities Exam Extremities exam: Present: warm, radial pulses palpable and symmetrical. Absent : calf tenderness, cyanotic, pedal edema - Neurological Exam Neurological exam: Present: CN II-XII intact, oriented X3, no focal deficits. Absent: pronater drift, facial droop, speech deficit - Skin Skin exam: Present: dry, intact Internal Medicine: Result - Labs CBC & Chem 7: 08/20/17 05:00 08/21/17 05:00 Consult Discharge Plan - Plan Referrals: Jihan Levin MD [Primary Care Provider] -
[2017-08-24] MEDS: Diltiazem CD (24hr) 120 MG CAPSULE PO SCH (16:58)
[2017-08-24] MEDS: Benzonatate 100 MG CAPSULE PO PRN (21:27)
[2017-08-24 22:12] LABS: Calcium 10.4 mg/dL (8.6-10.8); Potassium 4.6 mEq/L (3.5-4.5)
[2017-08-25] MEDS: hydrALAZINE 25 MG TABLET PO SCH ×3 (06:07→16:33)
[2017-08-25] MEDS: *HR* Enoxaparin 30 MG/0.3 ML SYRINGE SQ SCH (07:03)
[2017-08-25 07:47] VITALS: BP 160/83
[2017-08-25] MEDS: Aspirin 325 MG TABLET PO SCH (08:35)
[2017-08-25] MEDS: Furosemide 20 MG TABLET PO SCH (08:36)
[2017-08-25] MEDS ORDERED: Levofloxacin 750 MG/150 ML 750 MG/150 ML BAG IVPB SCH (09:00)
--- NOTE | 2017-08-25 14:56 | Discharge Summary ---
Date of Encounter: 08/25/17 Time of Encounter: 14:53 - Discharge Diagnosis (1) Pneumonia Priority: Primary Status: Acute Qualifiers: Pneumonia type: due to unspecified organism Laterality: left Lung location: lower lobe of lung Qualified Code(s): J18.1 - Lobar pneumonia, unspecified organism (2) Shortness of breath Priority: Primary Status: Acute (3) Left lower lobe pneumonia Priority: Primary Status: Acute Qualifiers: Pneumonia type: due to unspecified organism Qualified Code(s): J18.1 - Lobar pneumonia, unspecified organism - Discharge Medications Home Medications: Atorvastatin Calcium [Lipitor] 20 mg PO DAILY 07/24/15 [History] Carvedilol 12.5 mg PO BID 07/24/15 [History] HydrALAZINE 100 mg PO BID 07/24/15 [History] Lisinopril [Zestril] 20 mg PO DAILY 07/24/15 [History] Omeprazole [PriLOSEC] 20 mg PO DAILY 07/24/15 [History] Acetaminophen [Tylenol] 500 mg PO Q6HR PRN 08/19/17 [History] Aspirin 325 mg PO DAILY 08/19/17 [History] Cholecalciferol (Vitamin D3) [Vitamin D3] 2,000 units PO DAILY 08/19/17 [History ] Gabapentin [Neurontin] 100 mg PO TID 08/19/17 [History] Allergies/Adverse Reactions: 3 Allergy/AdvReac Type Severity Reaction Status Date / Time No Known Allergies Allergy Verified 07/24/15 12:21 Procedures/tests Complete & Pending: Procedures Performed prior 72 hours Category Date Time Status ECG 12 lead ECG [ECG] Routine Y 08/24/17 11:01 Completed Date of admission: 08/19/17 18:38 Primary care physician: Jihan Levin MD Consults: 08/22/17 15:37 Consult to Occupational Therapy [CONS] Routine Comment: Evaluate, develop and implement POC Reason for Consult: weakness Consult to Physical Therapy [CONS] Routine Comment: Evaluate, develop and implement POC Reason for Consult: weakness 08/24/17 15:47 Consult to Cardiology [CONS] Routine Comment: New atrial flutter/on going tachycardia Consulting Provider: Aleksandar Larsen Reason for Consult: Tachycardia shown to be atrial flutter. Started the pt on Cardizem 120CD, she will be on Heart monitor, with a max rate of 120 now - Also suspecting hydralazine inducing tachycardia and I am in the process of decreasing dose, currently on 75mg TID. Appreciate input Call Completed: No Discharging clinician: Milad Calle Anticipated date of discharge: 08/25/17 - Patient Status Disposition: Home, Self-Care Condition: Good Functional capacity at discharge: independent ambulation Overall status at discharge: patient is progressing back to baseline - Discharge Instructions Follow Up With: Jihan eLvin MD [Primary Care Provider] - Forms: ED Satisfaction Letter - Diet and Activity Activity: increase activity as tolerated Diet: advance to your usual diet Interval History: Patient was admitted for pneumonia. She was short of breath and lost her appetite but she is much improved Hospital course: Ms. Medina is a 81 year old female Patient feels good breathing well sats okay eating well and is going to be discharged home today. - Time Spent with Patient Total time spent providing and/or coordinating discharge services: Less than 30 minutes - Constitutional Vitals: Temp Pulse Resp BP Pulse Ox 96.9 F L 110 16 160/83 96 08/25/17 11:48 08/25/17 11:48 08/25/17 11:48 08/25/17 07:46 08/25/17 11:48 General appearance: Present: A&O X 3, pleasant, answers questions appropriately - Head Head exam: Present: atraumatic, normal inspection, normocephalic - Neck Neck exam general surgery: Present: supple, trachea midline. Absent: lymphadenopathy - Respiratory Respiratory exam: Present: CTAB. Absent: accessory muscle use, rales, rhonchi, wheezes - Cardiovascular Cardiovascular exam: Present: RRR, +S1, +S2. Absent: diastolic murmur, gallop, rubs, systolic murmur
[2017-08-25] MEDS: Diltiazem CD (24hr) 120 MG CAPSULE PO SCH (16:33)
== END 2017-08-25 16:31 | disposition home or self-care (01) | DRG 194 ==
LOC: EMEROOGRE 16:41 → INPGRE 16:41
PROVIDERS: ADMIT Internal Medicine; ATTEND Internal Medicine